=== PATIENT | male | born 2000 | race Caucasian/White ===

== ENCOUNTER → 2019-03-10 | Outpatient (CLI) | payer BC ==
--- NOTE | 2019-03-10 16:42 | Diagnostic Imaging Report ---
PROCEDURE: MRI lumbar spine. TECHNIQUE: Multiplanar, multisequence MRI of the lumbar spine was performed without contrast. INDICATION: Low back pain. COMPARISON: None. FINDINGS: There are five lumbar type vertebral bodies for the purposes of this report. Normal alignment. Vertebral body heights preserved. Normal bone marrow signal. At L4-L5, a large central disc extrusion results in moderate bilateral lateral recess and mild spinal canal narrowing. This combines with disc space height loss to also result in moderate right and mild left neural foraminal narrowing. At L5-S1, a large central disc protrusion results in moderate right and mild left lateral recess narrowing. No spinal canal narrowing. Mild right neural foraminal narrowing. Intervertebral discs are otherwise well preserved. No other neural impingement. No abnormal signal in the conus which terminates at L1. Normal morphology of the cauda equina. Visualized abdominal and pelvic contents are unremarkable. IMPRESSION: 1. Large central disc extrusion at L4-L5 results in moderate bilateral lateral recess narrowing. There is also moderate right neural foraminal narrowing at this level. 2. Large central disc protrusion at L5-S1 results in moderate right lateral recess narrowing. 3. No other substantial spondylotic change or high-grade neural impingement. No acute osseous findings. Dictated by: Dictated on workstation # [id number]
== END ==
LOC: RAD 15:01
DX: M51.27 Other intervertebral disc displacement, lumbosacral region (principal); M48.061 Spinal stenosis, lumbar region without neurogenic claudication
CPT/HCPCS: 72148

== ENCOUNTER 2019-05-18 15:41 | Outpatient (RCR) | payer BC | END 2019-07-02 10:20 | disposition home or self-care (01) | PROVIDERS: ATTEND Nurse Practitioner | DX: M51.37 Other intervertebral disc degeneration, lumbosacral region (principal) ==